=== PATIENT | female | born 1985 | race Caucasian/White ===

== ENCOUNTER 2021-04-07 10:26 | Outpatient (REF) | payer OTHER, SELFPAY ==
[2021-04-08 13:47] LABS: H Pylori Breath Test NOT DETECTED (NOT DETECTED)
== END 2021-04-07 10:27 | disposition home or self-care (01) ==
LOC: HO.LNP 10:26
PROVIDERS: PCP Physician Assistant; Referring Provider Physician Assistant; Visit Provider Physician Assistant
DX: E66.01 Morbid (severe) obesity due to excess calories (principal); R06.02 Shortness of breath; Z68.44 Body mass index [BMI] 60.0-69.9, adult; Z71.3 Dietary counseling and surveillance; Z11.0 Encounter for screening for intestinal infectious diseases
CPT/HCPCS: 83013

== ENCOUNTER → 2021-04-18 10:48 | Outpatient (REF) | payer OTHER, SELFPAY ==
--- NOTE | ~2021-04-18 | XR_ITS ---
EXAMINATION: XR CHEST CLINICAL INFORMATION: Shortness of breath COMPARISON: None TECHNIQUE: 2 views of the chest were obtained. FINDINGS: Normal symmetric lung volumes. No parenchymal consolidation. No pleural effusion. No pneumothorax. Cardiomediastinal silhouette and pulmonary vascularity are within normal limits. No acute osseous abnormalities. XR/XR chest 2V IMPRESSION: Unremarkable examination.
--- NOTE | 2021-04-18 11:01 | ECG_ITS ---
Test Reason : SOB Blood Pressure : / mmHG Vent. Rate : 079 BPM Atrial Rate : 079 BPM P-R Int : 128 ms QRS Dur : 070 ms QT Int : 356 ms P-R-T Axes : 038 014 021 degrees QTc Int : 408 ms Normal sinus rhythm with sinus arrhythmia Normal ECG No previous ECGs available Referred By: Radha Horn Electronically Signed By:KAIT VAIL MD
[2021-04-18 12:01] LABS: MANUAL DIFF FLAG NO
[2021-04-18 12:18] LABS: Basophils Percent Auto 0.5 % (0-2); Eosinophils Absolute Auto 0.2 X10*3/uL (0.0-0.4); Eosinophils Percent Auto 2.4 % (0-4); Hematocrit 40.2 % (37-47); Hemoglobin 12.2 g/dl (12.0-16.0); Imm Gran Abs Auto 0.03 X10*3/uL (0.00-0.03); Imm Gran Pct Auto 0.4 % (0.0-0.4); Lymphocytes Absolute Auto 1.7 X10*3/uL (1.2-4.9); Lymphocytes Percent Auto 23.1 % (20-40); Mean Corpuscular HGB Conc 30.3 g/dl (31.0-35.0); Monocytes Absolute Auto 0.5 X10*3/uL (0.1-1.2); Monocytes Percent Auto 6.7 % (2-11); Neutrophils Percent Auto 66.9 % (45-73); Platelet Count 288 X10*3/uL (160-400); Red Blood Count 5.09 X10*6/uL (4.20-5.50); Red Cell Distribution Width 18.4 % (11.0-16.0); White Blood Count 7.5 X10*3/uL (4.8-10.8)
[2021-04-18 12:24] LABS: Estimated Average Glucose 100 mg/dL; Hemoglobin A1c % 5.1 %
[2021-04-18 12:37] LABS: Alanine Aminotransferase 13 U/L (0-31); Albumin Level 4.2 g/dL (3.5-5.0); Alkaline Phosphatase 48 U/L (39-117); Anion Gap 13 (12-20); Aspartate Amino Transferase 18 U/L (5-31); Bilirubin Total 0.4 mg/dL (0.0-1.0); Blood Urea Nitrogen 13 mg/dL (9-16); C Reactive Protein 4.58 mg/dL (< or = 0.50); Calcium 9.2 mg/dL (8.4-10.2); Carbon Dioxide 25 mmol/L (22-29); Chloride 106 mmol/L (96-108); Cholesterol 149 mg/dL; Estimated Glomerular Filt Rate > 60; Glucose Fasting 76 mg/dL (60-99); HDL Cholesterol 38 mg/dL; Iron 32 mcg/dL (30-160); LDL Cholesterol Calculated 94 mg/dl; Percent Iron Saturation 9 % (15-50); Potassium 4.5 mmol/L (3.3-5.1); Sodium 139 mmol/L (135-145); Total Iron Binding Capacity 342 mcg/dL (228-428); Total Protein 7.6 g/dL (6.5-8.0); Triglycerides 88 mg/dL; Unsaturated Iron Binding 310 ug/dL
[2021-04-18 13:03] LABS: Ferritin 37 ng/mL (10-122); TSH reflex Free T4 1.74 uIU/mL (0.32-4.0); Vitamin D 25-OH Total 20.3 ng/mL (>30)
[2021-04-18 13:09] LABS: Folate 10.6 ng/mL (> or = 4.0); Vitamin B12 278 pg/mL (200-900)
[2021-04-19 09:41] LABS: Insulin Level Total 19.6 uIU/mL
[2021-04-19 13:16] LABS: Calcium (PTHI) 9.7 mg/dL (8.6-10.2); PTHI 44 pg/mL (14-64)
[2021-04-20 20:31] LABS: Zinc 75 mcg/dL (60-130)
[2021-04-21 21:22] LABS: Vitamin A 30 mcg/dL (38-98)
[2021-04-23 11:56] LABS: Vitamin B1 <6 nmol/L (8-30)
== END ==
LOC: HO.SL 10:48
PROVIDERS: PCP Physician Assistant; Visit Provider Physician Assistant
DX: G47.10 Hypersomnia, unspecified (principal); G47.19 Other hypersomnia; E66.01 Morbid (severe) obesity due to excess calories; Z68.44 Body mass index [BMI] 60.0-69.9, adult
CPT/HCPCS: 36415; 71046; 80053; 80061; 82306; 82607; 82728; 82746; 83036; 83525; 83540; 83970; 84425; 84443; 84590; 84630; 85025; 86140; 93005; 95806

== ENCOUNTER → 2021-05-05 13:35 | Outpatient (BNVA) | payer OTHER, SELFPAY | PROVIDERS: PCP Physician Assistant; Referring Provider Physician Assistant; Visit Provider Surgery ==

== ENCOUNTER → 2021-05-23 13:15 | Outpatient (BNVA) | payer OTHER, SELFPAY | PROVIDERS: PCP Physician Assistant; Referring Provider Physician Assistant; Visit Provider Surgery ==

== ENCOUNTER → 2021-05-30 07:40 | Outpatient (BNVA) | payer OTHER, SELFPAY | PROVIDERS: PCP Physician Assistant; Visit Provider Dietitian, Registered | DX: E66.01 Morbid (severe) obesity due to excess calories (principal) | CPT/HCPCS: 97802 ==

== ENCOUNTER → 2021-07-01 13:20 | Outpatient (BNVA) | payer OTHER, SELFPAY | PROVIDERS: PCP Physician Assistant; Referring Provider Physician Assistant; Visit Provider Surgery ==

== ENCOUNTER → 2021-07-19 09:54 | Outpatient (BNVA) | payer OTHER, SELFPAY | PROVIDERS: PCP Physician Assistant; Visit Provider Physician Assistant Surgical ==

== ENCOUNTER 2021-07-21 10:09 | Outpatient (REF) | payer OTHER, SELFPAY ==
--- NOTE | ~2021-07-21 | FL_ITS ---
EXAMINATION: XR GI SERIES CLINICAL INFORMATION: Obesity COMPARISON: None TECHNIQUE: Upper GI was performed using thin and thick barium. FINDINGS: Esophageal motility is normal. There is a small sliding-type hiatal hernia. There is mild gastroesophageal reflux. The stomach and duodenum are normal-appearing. No fold thickening, mass, ulcer or stricture is seen. FLUOROSCOPY TIME: 0.7 minutes DOSE AREA PRODUCT: 10.6 mullen per centimeter squared. 23 saved fluoroscopic images. FL/FL upper GI series IMPRESSION: Small sliding-type hiatal hernia and mild gastroesophageal reflux.
== END 2021-07-21 10:10 | disposition home or self-care (01) ==
LOC: HO.XRAY 10:09
PROVIDERS: Absent Provider Physician Assistant; PCP Physician Assistant; Visit Provider Surgery
DX: E66.9 Obesity, unspecified (principal)
CPT/HCPCS: 74240

== ENCOUNTER → 2021-08-23 14:57 | Outpatient (BNVA) | payer OTHER, SELFPAY | PROVIDERS: PCP Physician Assistant; Referring Provider Physician Assistant; Visit Provider Physician Assistant Surgical ==

== ENCOUNTER 2021-08-31 10:34 | Outpatient (REF) | payer OTHER, SELFPAY ==
--- NOTE | ~2021-08-31 | US_ITS ---
EXAMINATION: US COMPLETE ABDOMEN WITH LIVER ELASTOGRAPHY CLINICAL INFORMATION: Obesity. COMPARISON: None. TECHNIQUE: Real-time imaging of the abdominal viscera. Noninvasive ultrasound liver fibrosis assessment is performed using Heather ElastPQ point quantification shear wave elastography (pSWE) with a C5-2 MHz transducer. Multiple elastography samples are obtained. FINDINGS: PANCREAS: The visualized pancreatic head and body are normal in appearance. The remainder of the pancreas is obscured from visualization by the overlying bowel gas. ABDOMINAL AORTA: The proximal, middle, and distal aortic segments are normal in caliber. INFERIOR VENA CAVA: Visualized portions are normal. LIVER: Liver echotexture is slightly increased. The liver demonstrates normal size and contour. No focal lesion or intrahepatic biliary duct dilatation. The right lobe measures 16 cm in length. The left lobe measures 12 cm in length. Portal flow is normal/hepatopedal Shear wave liver elastography median stiffness is 1.54 m/s (reference: normal median stiffness is 1.3 m/s or less). IQR/median stiffness to assess sampling precision is 0.29 (reference: good quality data set is IQR/median stiffness of 0.15 or less). GALLBLADDER: Normal. The gallbladder is physiologically distended without evidence of stones, sludge, polyps, wall thickening or pericholecystic fluid. COMMON BILE DUCT: Normal in caliber measuring 0.3 cm in diameter. RIGHT KIDNEY: Normal. No hydronephrosis. No renal calculi or focal parenchymal lesions. The kidney measures 11.7 cm in maximum dimension. LEFT KIDNEY: Normal. No hydronephrosis. No renal calculi or focal parenchymal lesions. The kidney measures 12.5 cm in maximum dimension. SPLEEN: Slightly enlarged The spleen measures 13.7 cm in maximum dimension. FREE FLUID: None. US/US abdomen comp w elastography IMPRESSION: 1. Impression: Slightly echogenic liver. Slightly enlarged spleen. Limited visualization of the tail the pancreas. 2. Liver elastography: Limited due to sampling error. REFERENCE: Society of [employer]iologists in Ultrasound Liver Stiffness Thresholds (2020): LIVER STIFFNESS THRESHOLDS: *Liver Stiffness equal or less than 1.3 m/s: High probability of being normal. *Liver Stiffness less than 1.7 m/s: In the absence of other known clinical signs, rules out compensated advanced chronic liver disease. *Liver Stiffness 1.7-2.1 m/s: Suggestive of compensated advanced chronic liver disease but need further test for confirmation. *Liver Stiffness over 2.1 m/s: Rules in compensated advanced chronic liver disease. *Liver Stiffness over 2.4 m/s: Suggestive of clinically significant portal hypertension. QUALITY OF DATA SET: *IQR/Median value equal or less than 0.15 implies a quality data set. *IQR/Median value over 0.15 implies a poor quality data set. SIGNIFICANT CHANGE FROM PRIOR EXAM: Significant change if liver stiffness measurement is 10% or greater from prior exam. OTHER CONSIDERATIONS: The stage of liver fibrosis may be overestimated in the setting of acute hepatitis, liver inflammation, elevated liver function tests, hepatic vascular congestion, obstructive cholestasis, non-fasting state, and infiltrative diseases such as amyloidosis and lymphoma. In some patients with NAFLD, the liver stiffness thresholds for compensated advanced chronic liver disease may be lower. In causes other than viral hepatitis and NAFLD, liver stiffness thresholds are not well established.
[2021-08-31 12:51] LABS: Vitamin D 25-OH Total 33.5 ng/mL (>30)
[2021-08-31 13:06] LABS: Folate 9.9 ng/mL (> or = 4.0); Vitamin B12 259 pg/mL (200-900)
[2021-09-04 12:01] LABS: Vitamin B1 7 nmol/L (8-30)
[2021-09-05 00:51] LABS: Vitamin A 32 mcg/dL (38-98)
== END 2021-08-31 10:35 | disposition home or self-care (01) ==
LOC: HO.US 10:34
PROVIDERS: Physician Assistant; PCP Physician Assistant; Visit Provider Surgery
DX: Z01.818 Encounter for other preprocedural examination (principal); E66.9 Obesity, unspecified; K21.9 Gastro-esophageal reflux disease without esophagitis; E50.9 Vitamin A deficiency, unspecified; E51.9 Thiamine deficiency, unspecified; E53.8 Deficiency of other specified B group vitamins; E55.9 Vitamin D deficiency, unspecified
CPT/HCPCS: 36415; 76705; 76981; 82306; 82607; 82746; 84425; 84590

== ENCOUNTER → 2021-09-14 07:56 | Outpatient (BNVA) | payer OTHER, SELFPAY | PROVIDERS: PCP Physician Assistant; Visit Provider Physician Assistant Surgical ==

== ENCOUNTER → 2021-10-06 11:13 | Outpatient (BNVA) | payer OTHER, SELFPAY | PROVIDERS: PCP Physician Assistant; Referring Provider Physician Assistant; Visit Provider Physician Assistant Surgical ==

== ENCOUNTER → 2021-11-21 09:03 | Outpatient (BNVA) | payer OTHER, SELFPAY | PROVIDERS: PCP Physician Assistant; Referring Provider Physician Assistant; Visit Provider Physician Assistant Surgical ==